=== PATIENT | female | born 1955 | race African-American/Black ===

== ENCOUNTER → 2016-12-16 | Outpatient (CLI) | payer MEDICARE ==
[~2016-12-16] MED LIST: AVALIDE; AVALIDE 300-12.1 TAB; CADUET 10 MG/201 TAB; CADUET 5 MG-101 EACH PO; CLARINEX5 MG; DICYCLOMINE HCL20 MG PO; FLEXERIL10 MG PO; GEODAN; GEODAN PO; GEODON60 MG PO; IBUPROFEN400 MG PO; LAMICTAL PO; LAMICTAL150 MG PO; LOMOTIL TABLET1 TAB PO; MOTRIN600 MG PO; NEURONTIN PO; NEXIUM PO; PHENERGAN PO; PHENERGAN12.5 MG PO; PRILOSEC PO; TRAZODONE
--- NOTE | ~2016-12-16 | CR63 ---
[facility] A Service of [facility] & [facility] RADIOLOGY TEXT RESULTS PATIENT: CONNIE CALDERÓN LOCATION: [facility] : 51 UNIT #: [id number] AGE: [address]: Juan Manuel Alfred MD SEX: F ORDER DR: [id number] [facility] [address] [place], [place] [address] [id number] O MR#: [id number] Acc #: [id number] NAME: CONNIE CALDERÓN : 1955 SEX: F STUDY DATE/TIME: 12/16/2016 15:32 UNIT: [facility] ROOM: STUDY DESCRIPTION: CR Chest 2 View Attending Physician: Juan Manuel Alfred M.D. Referring Physician: Juan Manuel Alfred M.D. Ordering Physician: Juan Manuel Alfred M.D. Primary Care Physician: Pillo Baca M.D. MEDICAL IMAGING REPORT This report is preliminary unless electronic signature is present EXAM PA and lateral chest, 12/16/2016 INDICATIONS 60-year-old female with history of cough, shortness of breath and wheezing on and off for 1 year but getting worse. Comparison with 11/04/2014 FINDINGS Cardiomegaly. No acute infiltrate. Calcified granuloma right upper lobe. Degenerative change thoracic spine. IMPRESSION Cardiomegaly. No active disease. Dictated by... Regan Marie M.D. THIS IS AN ELECTRONICALLY VERIFIED REPORT Regan Marie M.D. at 12/17/2016 3:38 PM JAXON/susana TD: 12/17/2016 04:15 JOB #: [id number] MEDICAL IMAGING REPORT COPY
== END | disposition home or self-care (01) ==
LOC: CRAD 15:17
DX: R06.02 Shortness of breath (principal); R05 Cough; I51.7 Cardiomegaly
CPT/HCPCS: 71020

== ENCOUNTER → 2016-12-19 | Outpatient (CLI) | payer MEDICARE ==
--- NOTE | ~2016-12-19 | US98 ---
[facility] A Service of [facility] & [facility] / [facility] RADIOLOGY TEXT RESULTS PATIENT: CONNIE CALDERÓN LOCATION: [facility] : 51 UNIT #: [id number] AGE: [address]: ASIM RENEE MD SEX: F ORDER DR: [id number] [facility] [address] [place], [place] [address] [id number] O MR#: [id number] Acc #: [id number] NAME: CONNIE CALDERÓN. : 1955 SEX: F STUDY DATE/TIME: 12/19/2016 10:21 UNIT: [facility] ROOM: STUDY DESCRIPTION: US Pelvic Non-OB Complete Attending Physician: Asim Renee M.D. Referring Physician: Asim Renee M.D. Ordering Physician: Asim Renee M.D. Primary Care Physician: Asim Renee M.D. MEDICAL IMAGING REPORT This report is preliminary unless electronic signature is present EXAM Transabdominal and transvaginal pelvic ultrasound 12/19/2016 HISTORY Lower pelvic pain since 08/16/2016. FINDINGS Transabdominal and transvaginal pelvic ultrasound was performed. Endovaginal ultrasound was performed for attempted better visualization of the adnexal structures. The bladder is normal in appearance. The uterus measures 4.9 cm craniocaudal x 2.7 cm AP x 2.7 cm transverse. Multiple small fibroids are seen within the uterus, the largest of which measures 9 mm. Endometrial stripe measured 2 mm. The ovaries were not identified on either transabdominal or transvaginal portions of the examination. There is no adnexal mass. There is no free fluid in the pelvis. IMPRESSION 1. Leiomyomatous uterus. 2. Exam is limited as the ovaries were not identified on either transabdominal or transvaginal portions of the examination. There is no adnexal mass and there is no free fluid in the pelvis. Dictated by... Pillo Johnson M.D. THIS IS AN ELECTRONICALLY VERIFIED REPORT Pillo Johnson M.D. at 12/20/2016 3:25 PM KRT/dj TD: 12/20/2016 11:01 JOB #: [id number] MEDICAL IMAGING REPORT [facility] A Service of [facility] & [facility] / [facility] RADIOLOGY TEXT RESULTS PATIENT: CONNIE CALDERÓN [id number] : 51 UNIT #: [id number] AGE: [address]: ASIM RENEE MD SEX: F ORDER DR: COPY
== END | disposition home or self-care (01) ==
LOC: CWCC 09:34
DX: R10.2 Pelvic and perineal pain (principal); D25.9 Leiomyoma of uterus, unspecified
CPT/HCPCS: 76830; 76856

== ENCOUNTER 2017-01-13 21:05 | Emergency (ER) | payer MEDICARE ==
--- NOTE | ~2017-01-13 | EKG ---
PATIENT: CONNIE CALDERÓN UNIT #: [id number] Ventricular Rate: 68 BPM Atrial Rate: 68 BPM P-R Interval: 174 ms QRS Duration: 92 ms Q-T Interval: 448 ms QTC Calculation(Bezet): 476 ms P Page: 71 degrees Calculated R Page: 70 degrees Calculated T Page: 34 degrees Diagnosis Line: Normal sinus rhythm Diagnosis Line: Biatrial enlargement Diagnosis Line: Abnormal ECG Diagnosis Line: No previous ECGs available Diagnosis Line: Confirmed by BEVERLY ABRAHAM MD ([id number]) on 01/13/2017 Diagnosis Line: 11:43:57 PM INTERPRETING MD: JARAD SWANN
--- NOTE | ~2017-01-13 | CR63 ---
[facility] A Service of [facility] & [facility] / [facility] RADIOLOGY TEXT RESULTS PATIENT: CONNIE CALDERÓN LOCATION: [facility] : 51 UNIT #: [id number] AGE: [address]: Dorian Waddell MD SEX: F ORDER DR: [id number] [facility] [address] [place], [place] [address] [id number] E MR#: [id number] Acc #: [id number] NAME: CONNIE CALDERÓN : 1955 SEX: F STUDY DATE/TIME: 01/13/2017 21:12 UNIT: [facility] ROOM: STUDY DESCRIPTION: CR Chest 2 View Attending Physician: Dorian Waddell M.D. Ordering Physician: Romel Soria M.D. Primary Care Physician: Pillo Baca M.D. MEDICAL IMAGING REPORT This report is preliminary unless electronic signature is present EXAM Two-view chest INDICATIONS Shortness of air and cough since yesterday. FINDINGS PA and lateral views of the chest compared to 12/16/2016. Heart mediastinal contours normal. Lungs are clear. No focal consolidation. IMPRESSION No acute findings or significant change Dictated by... Ta Harrell M.D. THIS IS AN ELECTRONICALLY VERIFIED REPORT Ta Harrell M.D. at 01/14/2017 3:06 PM DHAVAL/jesse TD: 01/14/2017 01:41 JOB #: [id number] MEDICAL IMAGING REPORT Page 1 of 1 COPY
[2017-01-13 18:48] LABS: BASOPHIL# 0.1 X10e3 (0-0.3); BASOPHIL% 1.2 % (0-2.5); EOSINOPHIL# 0.6 X10e3 (0-0.7); EOSINOPHIL% 9.9 % (0.0-7.0); HEMATOCRIT 41.9 % (35.0-45.0); HEMOGLOBIN 13.3 gm/dL (12.0-16.0); LYMPHOCYTE# 2.1 X10e3 (1.0-3.5); LYMPHOCYTE% 36.1 % (17.0-45.0); MEAN CELL VOLUME 84.3 FL (83-96); MEAN CORPUSCULAR HEMOGLOBIN 26.8 PG (28-34); MEAN CORPUSCULAR HGB CONC 31.8 g/dL (30-36); MEAN PLATELET VOLUME 8.5 FL (6.5-11.5); MONOCYTE# 0.6 X10e3 (0-1.0); MONOCYTE% 10.1 % (3.0-12.0); NEUTROPHIL# 2.5 X10e3 (1.5-7.1); NEUTROPHIL% 42.7 % (40-75); PLATELET COUNT 222 X10e3 (140-420); RED BLOOD COUNT 4.98 X10e (3.90-5.30); RED CELL DISTRIBUTION WIDTH 15.4 % (11.0-15.5); WHITE BLOOD COUNT 5.9 X10e3 (4.0-10.5)
[2017-01-13 18:50] LABS: DIFF IND NO
[2017-01-13 19:10] LABS: ALBUMIN SERUM 4.2 g/dL (3.5-5.0); BILIRUBIN, DIRECT 0.1 mg/dL (0.0-0.2); BILIRUBIN,INDIRECT 0.6 mg/dL (0.0-0.9); BILIRUBIN,TOTAL 0.7 mg/dL (0.2-2.0); BUN/CREATININE RATIO 13.84; CALCIUM SERUM 9.2 mg/dL (8.4-10.2); CREATININE SERUM 1.3 mg/dL (0.6-1.4); GLOM FILT RATE Estimated 50.6 mL/min (>60); POTASSIUM 4.4 mmol/L (3.5-5.1); PROTEIN TOTAL SERUM 6.7 g/dL (6.0-8.3)
[2017-01-13 20:56] LABS: POC - CKMB 1.4 ng/mL (0.0-7.9); POC - TROPONIN <0.05 ng/mL (<=0.05)
== END 2017-01-13 22:15 | disposition home or self-care (01) ==
LOC: CED 21:05
PROVIDERS: Emergency Medicine
DX: J20.9 Acute bronchitis, unspecified (principal); I10 Essential (primary) hypertension; E78.5 Hyperlipidemia, unspecified; Z98.890 Other specified postprocedural states
CPT/HCPCS: 36415; 71020; 80048; 80076; 82553; 84484; 85025; 93005; 94640; 99284